=== PATIENT | male | born 1990 | race Asian ===

== ENCOUNTER 2016-06-22 17:48 | Emergency (ER) | payer SELFPAY ==
[2016-06-22] MEDS ORDERED: CEPHALEXIN 500 MG CAPSULE ONE (18:44)
== END 2016-06-22 18:49 | disposition home or self-care (01) ==
LOC: ED 17:48
DX: L03.114 Cellulitis of left upper limb (principal)
CPT/HCPCS: 99283 ×2; A9270

== ENCOUNTER 2016-06-25 17:00 | Emergency (ER) | payer SELFPAY ==
[2016-06-25] MEDS ORDERED: SULFAMETHOXAZOLE 800 MG/TRIMETHOPRIM 160 MG TABLET ONE (17:48)
[2016-06-25] MEDS ORDERED: TETANUS,DIPHTHERIA TOXOID SYRINGE IM V ONE (17:48)
[2016-06-25] MEDS ORDERED: IBUPROFEN 800 MG TABLET ONE (17:48)
== END 2016-06-25 18:19 | disposition home or self-care (01) ==
LOC: ED 17:00
DX: L02.414 Cutaneous abscess of left upper limb (principal); Z23 Encounter for immunization